=== PATIENT | female | born 1955 | race Two or more races ===

== ENCOUNTER 2024-05-28 12:31 | Outpatient (CLI) | payer OTHER | END 2024-05-28 12:40 | disposition home or self-care (01) | LOC: SONOGRAMA 12:31 | PROVIDERS: ATTEND Pathology Anatomic Pathology & Clinical Pathology | DX: D44.0 Neoplasm of uncertain behavior of thyroid gland (principal); E04.2 Nontoxic multinodular goiter ==

== ENCOUNTER 2024-10-28 09:45 | Inpatient (IN) | payer OTHER ==
[~2024-10-28] VITALS: Ht 152.4 cm; Wt 48.5 kg
[2024-10-28 11:06] LABS: URINE APPEARANCE Clear; URINE BILIRRUBIN Negative (NEGATIVE); URINE BLOOD Small; URINE COLOR Yellow; URINE GLUCOSE Negative (NEGATIVE); URINE KETONE Negative (NEGATIVE); URINE LEUKOCYTE Negative; URINE NITRATE Negative; URINE PROTEIN Negative (NEGATIVE); URINE UROBILINOGEN 0.2 E.U./dl
[2024-10-28 11:07] LABS: URINE RBC 48.8 uL (0.0-20.8)
[2024-10-28 11:07] LABS: HEMATOCRIT 37.9 % (36.0-45.00); HEMOGLOBIN 12.4 g/dL (12.0-15.00); MEAN CORPUSCULAR HEMOGLOBIN 27.5 pg (27.00-32.0); MEAN CORPUSCULAR HGB CONC 32.7 g/dl (32.0-36.0); PLATELET COUNT 198 K/uL (150-450); RED BLOOD COUNT 4.51 M/uL (4.00-6.00)
[2024-10-28 11:08] LABS: URINE BACTERIA 3.6 uL (0.0-1933); URINE EPITHELIAL CELLS 1.2 uL (0.0-38.8); URINE WBC 0.9 uL (0.0-23.2)
[2024-10-28 11:39] LABS: PROTHROMBIN TIME 10.9 SECONDS (9.0-11.5)
[2024-10-28 11:46] LABS: ALBUMIN 4.2 gm/dL (3.4-5.0); BILIRUBIN TOTAL 1.76 mg/dL (0.3-1.2); CALCIUM 9.9 mg/dL (8.5-10.1); CREATININE SERUM 0.59 mg/dL (0.55-1.02); GFR 101.36; GLOBULINA 3.6 G/DL (2.4-3.5); POTASSIUM 3.92 mEq/L (3.5-5.1); TOTAL PROTEIN 7.8 gm/dL (6.4-8.2)
[2024-11-02] MEDS ORDERED: ENALAPRILAT DIHYDRATE 1.25 MG/ML VIAL IV PRN (10:45)
[2024-11-02] MEDS ORDERED: ONDANSETRON HCL 2 MG/ML VIAL IV PRN (10:45)
[2024-11-02] MEDS ORDERED: DEXAMETHASONE SODIUM PHOSP/PF 10 MG/ML VIAL ONE (11:58)
[2024-11-02] MEDS ORDERED: MORPHINE SULFATE 4 MG/ML VIAL IV ONE ×2 (14:15→15:30)
[2024-11-02] MEDS ORDERED: TRAMADOL HCL 50 MG TABLET PO SCH (17:00)
[2024-11-02] MEDS ORDERED: CYCLOBENZAPRINE HCL 5 MG TABLET PO SCH (17:00)
[2024-11-02] MEDS ORDERED: ACETAMINOPHEN 500 MG GEL..CAP PO SCH (17:00)
[2024-11-02] MEDS ORDERED: CALCITRIOL 0.5 MCG CAPSULE PO SCH (20:45)
[2024-11-02] MEDS ORDERED: PANTOPRAZOLE SODIUM 40 MG/VIAL VIAL IV PUSH SCH (21:00)
[2024-11-02] MEDS ORDERED: Calcium Carbonate 1 TAB TABLET PO SCH ×2 (21:00)
[2024-11-03] MEDS ORDERED: PROMETHAZINE HCL 25 MG/ML AMPUL IV PRN (00:15)
[2024-11-03 00:31] VITALS: BP 108/68; O2SAT 96
[2024-11-03] MEDS ORDERED: LEVOTHYROXINE SODIUM 75 MCG TABLET PO SCH (06:00)
[2024-11-03 08:00] VITALS: BP 100/56; O2SAT 97
[2024-11-03] MEDS ORDERED: PANTOPRAZOLE SODIUM 40 MG/VIAL VIAL IV SCH (09:00)
[2024-11-03] MEDS ORDERED: PANTOPRAZOLE SODIUM 40 MG/VIAL VIAL IV PUSH SCH (09:00)
[2024-11-03] MEDS ORDERED: FAMOTIDINE/PF 20 MG/2 ML VIAL IV PUSH SCH (09:00)
[2024-11-03] MEDS ORDERED: PROMETHAZINE HCL 25 MG/ML AMPUL IV NR (13:00)
[2024-11-03] MEDS ORDERED: PROMETHAZINE HCL 25 MG/ML AMPUL IV SCH (17:00)
[2024-11-03] MEDS ORDERED: ALUMINUM HYD PO SCH (17:00)
[2024-11-03] MEDS ORDERED: MENTHOL/CETYLPYRD CL 1 LOZENGE MM SCH (17:00)
[2024-11-03] MEDS ORDERED: MAG HYDROX PO SCH (17:00)
[2024-11-03] MEDS ORDERED: [UNRECOGNIZED DRUG - OTHER] PO SCH (17:00)
[2024-11-03] MEDS ORDERED: DIPHENHYDRAMINE HCL PO SCH (17:00)
[2024-11-03] MEDS ORDERED: DEXTROSE 5 %-0.45 % SOD CHLORD 1,000 ML IV SCH (17:01)
[2024-11-03 17:17] VITALS: BP 109/66; O2SAT 95
[2024-11-03 19:18] LABS: ALBUMIN 3.8 gm/dL (3.4-5.0); CALCIUM 8.9 mg/dL (8.5-10.1); CREATININE SERUM 1.02 mg/dL (0.55-1.02); GFR 53.89; PHOSPHOROUS 4.7 mg/dL (2.5-4.9); POTASSIUM 3.65 mEq/L (3.5-5.1)
[2024-11-03] MEDS ORDERED: LORazepam 0.5 MG TABLET PO SCH (21:00)
[2024-11-03] MEDS ORDERED: MAG HYDROX/ALUMINUM HYD/SIMETH 30 ML BLIST.PACK PO ONE (22:33)
[2024-11-04 00:56] VITALS: BP 117/54; O2SAT 100
[2024-11-04 08:00] VITALS: BP 119/70; O2SAT 97
[2024-11-04] MEDS ORDERED: FLUTICASONE PROPIONATE 50 MCG SPRAY NASAL SCH (09:00)
== END 2024-11-04 14:46 | disposition home or self-care (01) | DRG 627 ==
LOC: O/R 11-02 06:23 → SURH 11-02 09:45
PROVIDERS: Surgery; ADMIT Surgery; ATTEND Surgery
PROC: 0GTK0ZZ Resection of Thyroid Gland, Open Approach (ICD-10-PCS; principal; 2024-11-02 10:00)
DX: C73 Malignant neoplasm of thyroid gland (principal); E04.2 Nontoxic multinodular goiter

== ENCOUNTER 2025-02-23 06:12 | Day surgery (SDC) | payer OTHER ==
[2025-02-23] MEDS ORDERED: fentaNYL CITRATE 50 MCG/ML AMPUL IV PUSH ONE (09:45)
[2025-02-23] MEDS ORDERED: MIDAZOLAM HCL 2 MG/2 ML VIAL IV ONE (09:45)
[2025-02-23] MEDS ORDERED: DIPHENHYDRAMINE HCL 50 MG/ML VIAL 1ML IV ONE (09:45)
== END 2025-02-23 11:05 | disposition home or self-care (01) ==
LOC: AMB-ENDOS 06:12
PROVIDERS: ATTEND Colon & Rectal Surgery
DX: K62.1 Rectal polyp (principal); K62.5 Hemorrhage of anus and rectum; K57.30 Diverticulosis of large intestine without perforation or abscess without bleeding; Z91.041 Radiographic dye allergy status